=== PATIENT | male | born 1985 | race Hispanic/Latino ===

== ENCOUNTER 2018-05-08 13:35 | Emergency (ER) | payer SELFPAY ==
--- NOTE | 2018-05-08 13:50 | Emergency Department Report ---
Blank Doc - Documentation Documentation: This is a 32-year-old male that presents with acute on chronic lower back pain. Patient also stated has right buttock pain. Stated started at work while heavy lifting. Denies any urinary symptoms. Denies any trauma or injuries. This initial assessment diagnostic orders/clinical plan/treatment(s) is/are subject to change based on patient's health status, clinical progression and re- assessment by fellow clinical providers in the ED. Further treatment and workup at subsequent clinical providers discretion. Patient/guardians urged not to elope from ED s their condition may be serious if not clinically assessed and managed. Initial orders include: 1-Patient sent to [facility] for further evaluation and treatment
[2018-05-08 13:52] VITALS: BP 151/109
[2018-05-08] MEDS ORDERED: NORCO 10/325 PO ONE (18:21)
[2018-05-08] MEDS ORDERED: XYLOCAINE 1% 20 mL INFILTRATI NR (18:30)
--- NOTE | 2018-05-08 18:48 | Emergency Department Report ---
Abscess Boil HPI - HPI Chief Complaint: Back Pain/Injury Stated Complaint: BACK PAIN/BUTTOCKS PAIN Time Seen by Provider: 05/08/18 13:46 Duration: 2 Days Location: Sacral/Pilonidal Severity: Severe History: Yes Pain (10/10 to pull and a little area), No Fever, No Purulent Drainage, No Numbness, No Foreign Body, No Previous History, No Insect Bite HPI: This is a 32-year-old male he reports that he has painful boil on his buttocks. These have been pain at the site. Pain is 10/10 and sharp and throbbing. Worse with sitting down. He has not taken any medication [place] is no what it is. Patient is very tearful. Tetanus vaccine is up-to-date. Denies any fever or chills or nausea or vomiting. Denies any abdominal pain. Home Medications: Previous Rx's Medication Instructions Recorded Last Taken Type Acetaminophen/Codeine [Tylenol 1 tab PO Q6H PRN #14 tab 05/08/18 Unknown Rx /Codeine # 3 tab] Clindamycin [Clindamycin CAP] 300 mg PO Q8H 10 Days #30 cap 05/08/18 Unknown Rx Ibuprofen [Motrin] 800 mg PO Q8HR PRN #12 tablet 05/08/18 Unknown Rx Allergies/Adverse Reactions: Allergies Allergy/AdvReac Type Severity Reaction Status Date / Time No Known Allergies Allergy Unverified 05/08/18 13:52 ED Review of Systems ROS: Stated complaint: BACK PAIN/BUTTOCKS PAIN Other details as noted in HPI Constitutional: denies: chills, fever Respiratory: denies: cough, shortness of breath, wheezing Cardiovascular: denies: chest pain, palpitations, edema, syncope Gastrointestinal: denies: abdominal pain, nausea, vomiting, constipation Genitourinary: denies: dysuria, hematuria Musculoskeletal: back pain. denies: joint swelling, arthralgia, myalgia Skin: other (boil to buttocks) Neurological: denies: headache, numbness, paresthesias, abnormal gait, vertigo ED Past Medical Hx - Past Medical History Previous Medical History?: Yes Additional medical history: undescended testicle,shingles - Surgical History Past Surgical History?: Yes Additional Surgical History: testicular - Family History Family history: hypertension - Social History Smoking Status: Never Smoker Substance Use Type: Alcohol - Medications Home Medications: Home Medications Medication Instructions Recorded Confirmed Last Taken Type Acetaminophen/Codeine [Tylenol 1 tab PO Q6H PRN #14 tab 05/08/18 Unknown Rx /Codeine # 3 tab] Clindamycin [Clindamycin CAP] 300 mg PO Q8H 10 Days #30 cap 05/08/18 Unknown Rx Ibuprofen [Motrin] 800 mg PO Q8HR PRN #12 tablet 05/08/18 Unknown Rx ED Abscess Boil Physical Exam - Exam General: Vital signs noted. No distress. Alert and acting appropriately. Front/Back of Body, Lg (Color): 1 - Patient with 2 x 2 centimeter area erythema, indurated and fluctuant area to pilonidal. Tender to palpate without any drainage. Size: 3 cm Exam: Yes Tenderness (glenoid all area), Yes Fluctuance (peroneal area), Yes Surrounding Cellulites/Erythema (2 x 2 centimeter), Yes Normal Neurologic Exam (alert and oriented 3 with no focal deficits), Yes Normal Circulation (No cce. + 2 pulses in all extremities, no neurovascular compromise), No Lymphangitis, No Crepitation, No Heart Murmur (tachycardiac with a regular rhythm) Exam: Lungs: Clear to auscultate bilaterally, no rhonchi wheezes or rales. Psych: Normal mood and behavior. Abdomen: Soft, nontender to palpation in all quadrants. I & D Note - I & D Note I & D Note: Incision and drainage of abscess. 2 x 2 centimeter indurated fluctuant area to sacral/pilonidal area. Area cleansed with iodine, 13 mL of 1% lidocaine injected in the area. #11 blade used to make 0.25 cm opening to the Center and forceps used to break up possible pockets. Large amount of foul- smelling pus drained from site. Jane packed with 1 inch iodoform gauze. Patient received posterior X and first dose of clindamycin in ED. He tolerated procedure well and said that his pain is better. ED Course Vital Signs 05/08/18 05/08/18 13:50 18:28 Temperature 97.5 F L Pulse Rate 108 H Respiratory 18 16 Rate Blood Pressure 151/109 O2 Sat by Pulse 98 Oximetry Vital Signs 05/08/18 05/08/18 05/08/18 13:50 18:28 20:57 Temperature 97.5 F L Pulse Rate 108 H 88 Respiratory 18 16 Rate Blood Pressure 151/109 O2 Sat by Pulse 98 Oximetry - Reevaluation(s) Reevaluation #1: 05/08/18 18:56 Patient given hydrocodone 5/is referred to tablets. Emergency room preprocedure Reevaluation #2: 05/08/18 20:56 Please see procedure note for details of incision and drainage of abscess. Patient given clindamycin 600 mg by mouth and blistered 0.5 mL in the emergency room. Critical care attestation.: If time is entered above; I have spent that time in minutes in the direct care of this critically ill patient, excluding procedure time. ED Medical Decision Making - Medical Decision Making This a 32-year-old male here with pilonidal abscess to be drained. Please see procedure note for detail. Abscess drained and patient tolerated well. He received Blaine 5/325 2 tablets preprocedure and clindamycin 600 mg by mouth and Boostrix 0.5 mL injection past procedure. I instructed patient that he needs to return in 4 days for evaluation and removal of packing and and he voiced understanding. Vital signs stable afebrile and his pain is better ED Disposition Clinical Impression: Pilonidal abscess, Encounter for incision and drainage procedure Disposition: TO HOME OR SELFCARE Is pt being admited?: No Does the pt Need Aspirin: No Condition: Stable Instructions: Abscess Incision and Drainage (ED), Heat Pack Application (ED) Additional Instructions: Please return to the emergency room in 4 days to have packing removal and reevaluation of abscess site. Apply warm compresses to affected site 3-4 times a day to facilitate drainage. Please do not remove packing from site. Keep affected area clean and dry Take antibiotics as prescribed Take Tylenol 3 for severe pain and Motrin for mild to moderate pain If you symptoms worsens, return to the emergency room Referrals: return to ,emergency room [Other] - 05/12/18 DONOVAN PATEL MD [Primary Care Provider] - 05/10/18 Forms: Work/School Release Form(ED)
[2018-05-08] MEDS ORDERED: CLEOCIN PO ONE (20:51)
[2018-05-08] MEDS ORDERED: BOOSTRIX IM ONE (20:51)
== END 2018-05-08 21:16 | disposition home or self-care (01) ==
LOC: ED 13:35
DX: L05.01 Pilonidal cyst with abscess (principal)
CPT/HCPCS: 90471; 90715

== ENCOUNTER 2018-05-12 12:23 | Emergency (ER) | payer SELFPAY ==
[2018-05-12 12:29] VITALS: BP 147/84
--- NOTE | 2018-05-12 12:34 | Emergency Department Report ---
Blank Doc - Documentation Documentation: 32 y M presents with wound check and packing removal was seen 4 days ago for pilondial abscess no other cc [facility] for packing removal
--- NOTE | 2018-05-12 15:03 | Emergency Department Report ---
ED Recheck HPI - General Chief Complaint: Skin/Abscess/Foreign Body Stated Complaint: REMOVAL OF PACKAGING Time Seen by Provider: 05/12/18 12:29 Source: patient Mode of arrival: Ambulatory Limitations: No Limitations - History of Present Illness Initial Comments: This is a 32-year-old male presents for pack removal. Patient had an I&D on Tuesday and was told to follow up on today to have packing removed. Patient states there has been moderate drainage with multiple dressing changes but packing remained intact. He denies any new symptoms. Patient denies swelling, foul smelling drainage, numbness or tingling, erythema, or swelling. MD Complaint: wound re-check Onset/Timin -: days(s) Initial Visit For: abscess Returns Today for: wound recheck Symptoms Since Prior Visit: no new symptoms Context: planned re-check Associated Symptoms: none Treatments Prior to Arrival: dressings, Given Pain Meds on - Related Data Previous Rx's Medication Instructions Recorded Last Taken Type Acetaminophen/Codeine [Tylenol 1 tab PO Q6H PRN #14 tab 05/08/18 Unknown Rx /Codeine # 3 tab] Clindamycin [Clindamycin CAP] 300 mg PO Q8H 10 Days #30 cap 05/08/18 Unknown Rx Ibuprofen [Motrin] 800 mg PO Q8HR PRN #12 tablet 05/08/18 Unknown Rx Allergies Allergy/AdvReac Type Severity Reaction Status Date / Time No Known Allergies Allergy Unverified 05/08/18 13:52 ED Review of Systems ROS: Stated complaint: REMOVAL OF PACKAGING Other details as noted in HPI Constitutional: denies: chills, fever Respiratory: denies: cough, shortness of breath, wheezing Cardiovascular: denies: chest pain, palpitations Gastrointestinal: denies: abdominal pain, nausea, diarrhea Skin: lesions (packing from I&D and pilonidal region). denies: rash ED Past Medical Hx - Past Medical History Previous Medical History?: Yes Additional medical history: undescended testicle,shingles - Surgical History Past Surgical History?: Yes Additional Surgical History: testicular - Social History Smoking Status: Never Smoker Substance Use Type: None - Medications Home Medications: Home Medications Medication Instructions Recorded Confirmed Last Taken Type Acetaminophen/Codeine [Tylenol 1 tab PO Q6H PRN #14 tab 05/08/18 Unknown Rx /Codeine # 3 tab] Clindamycin [Clindamycin CAP] 300 mg PO Q8H 10 Days #30 cap 05/08/18 Unknown Rx Ibuprofen [Motrin] 800 mg PO Q8HR PRN #12 tablet 05/08/18 Unknown Rx ED Physical Exam - General Limitations: No Limitations General appearance: alert, in no apparent distress, obese - Respiratory Respiratory exam: Present: normal lung sounds bilaterally. Absent: respiratory distress - Cardiovascular Cardiovascular Exam: Present: regular rate, normal rhythm. Absent: systolic murmur, diastolic murmur, rubs, gallop - GI/Abdominal GI/Abdominal exam: Present: soft, normal bowel sounds - Neurological Exam Neurological exam: Present: alert, oriented X3 - Psychiatric Psychiatric exam: Present: normal affect, normal mood - Skin Skin exam: Present: warm, dry, normal color, other (packing to wound in pilonidal region, no surrounding cellulitis or swelling, nontender). Absent: intact, rash ED Course Vital Signs 05/12/18 12:27 Temperature 97.9 F Pulse Rate 95 H Respiratory 18 Rate Blood Pressure 147/84 O2 Sat by Pulse 98 Oximetry ED Recheck MDM - Differential Diagnosis Wound Recheck - Medical Decision Making This is a 32-year-old male who presents for packing removal from I&D 4 days ago. Patient is stable and examined by me. No acute signs of distress noted. There are no signs infection and patient denies new symptoms. Packing was removed with sterile forceps. Wound cleaned with normal saline and 4 x 4 dressing was surgical tape applied. Educated patient on wound care. Patient agrees to ED plan of care. Discharged home and follow up with PCP in 2-3 days. Critical care attestation.: If time is entered above; I have spent that time in minutes in the direct care of this critically ill patient, excluding procedure time. ED Disposition Clinical Impression: Abscess packing removal Disposition: DC- TO HOME OR SELFCARE Is pt being admited?: No Does the pt Need Aspirin: No Condition: Stable Instructions: Acute Wound Care (ED) Additional Instructions: Clean wound twice a day and apply sterile 4 x 4 gauze and tape until wound closes in 3-5 days. Follow-up with your primary care provider in 2-3 days for wound reevaluation. Return to the emergency room if swelling, foul drainage, redness around wound, and tenderness. Referrals: DONOVAN PATEL MD [Primary Care Provider] - 3-5 Days [facility] [Outside] - 3-5 Days [facility] [Outside] - 3-5 Days Forms: Work/School Release Form(ED) Time of Disposition: 15:06
== END 2018-05-12 15:27 | disposition home or self-care (01) ==
LOC: ED 12:23
DX: Z48.01 Encounter for change or removal of surgical wound dressing (principal); T14.8XXA Other injury of unspecified body region, initial encounter

== ENCOUNTER 2019-01-12 22:02 | Emergency (ER) | payer SELFPAY ==
--- NOTE | 2019-01-12 22:18 | Emergency Department Report ---
Stated Complaint: CHEST PAIN, NUMBNESS, CYST IN LOWER BACK - HPI History of Present Illness: 33yo WM states that he has a lower back cyst that is painful. He further states that he has CP that is subsiding now, after he took Acetaminophen-codeine prior to arrival. MSE screening note: Focused history and physical exam performed. Due to findings the following was ordered: ED Disposition for MSE Condition: Stable
[2019-01-12 23:19] LABS: Hematocrit 48.5 % (35.5-45.6); Hemoglobin 16.6 gm/dl (11.8-15.2); Mean Corpuscular HGB Conc 34 % (32-34); Mean Corpuscular Volume 87 fl (84-94); Red Blood Count 5.59 M/mm3 (3.65-5.03); Red Cell Distribution Width 12.7 % (13.2-15.2)
[2019-01-12 23:40] LABS: Alanine Aminotransferase 73 units/L (7-56); Albumin 4.3 g/dL (3.9-5); BUN/Creatinine Ratio 10; Blood Urea Nitrogen 6 mg/dL (9-20); Calcium 9.4 mg/dL (8.4-10.2); Hemolysis Index 17
--- NOTE | 2019-01-13 00:37 | XRay Report ---
CHEST 2 VIEWS INDICATION / CLINICAL INFORMATION: Chest pain. COMPARISON: None available. FINDINGS: SUPPORT DEVICES: None. HEART / MEDIASTINUM: No significant abnormality. LUNGS / PLEURA: No significant pulmonary or pleural abnormality. No pneumothorax. ADDITIONAL FINDINGS: No significant additional findings. IMPRESSION: 1. No acute findings. Signer Name: Marissa Boggs MD Signed: 01/13/2019 12:33 AM Workstation Name: [id number]
--- NOTE | 2019-01-13 00:59 | Emergency Department Report ---
- General Chief complaint: Chest Pain Stated complaint: CHEST PAIN, NUMBNESS, CYST IN LOWER BACK Time Seen by Provider: 01/12/19 23:47 Source: patient, family Mode of arrival: Ambulatory Limitations: No Limitations - History of Present Illness Initial comments: Patient initially arrived in emergency room complaining of right chest pain but reports that the pain is coming from his buttocks area where he has a cyst that he had at the same place last year and because of the pain and stress he thinks is as well as pains hurting. It is noted on the triage note that patient said t he right chest pain started after taking the last antibiotic for abscess in his mouth today. He reports pain buttocks area 3-10 worse with sitting. Denies any fever or chills. He also reports that his blood pressure is elevated because of the pain that he is having. Denies any nausea or vomiting. Denies any history of heart disease or chest pain. MD complaint: abscess/boil Onset/Timin -: days(s) Tetanus Up to Date: yes Location: buttocks Severity: mild Severity scale (0 -10): 3 Quality: sharp, constant, other (throbbing) Consistency: constant Improves with: rest Worsens with: palpation, other (stated in) Context: other (similar incident in the past) Associated symptoms: denies other symptoms Treatments Prior to Arrival: antibiotic - Related Data Previous Rx's Medication Instructions Recorded Last Taken Type Ibuprofen [Motrin] 800 mg PO Q8HR PRN #12 tablet 05/08/18 Unknown Rx Acetaminophen/Codeine [Tylenol 1 tab PO Q6H PRN #12 tab 01/13/19 Unknown Rx /Codeine # 3 tab] Clindamycin [Clindamycin CAP] 300 mg PO Q8H 10 Days #30 cap 01/13/19 Unknown Rx Allergies Allergy/AdvReac Type Severity Reaction Status Date / Time No Known Allergies Allergy Unverified 05/08/18 13:52 Abscess Boil HPI - HPI Chief Complaint: Chest Pain Stated Complaint: CHEST PAIN, NUMBNESS, CYST IN LOWER BACK Time Seen by Provider: 01/12/19 23:47 Home Medications: Previous Rx's Medication Instructions Recorded Last Taken Type Ibuprofen [Motrin] 800 mg PO Q8HR PRN #12 tablet 05/08/18 Unknown Rx Acetaminophen/Codeine [Tylenol 1 tab PO Q6H PRN #12 tab 01/13/19 Unknown Rx /Codeine # 3 tab] Clindamycin [Clindamycin CAP] 300 mg PO Q8H 10 Days #30 cap 01/13/19 Unknown Rx Allergies/Adverse Reactions: Allergies Allergy/AdvReac Type Severity Reaction Status Date / Time No Known Allergies Allergy Unverified 05/08/18 13:52 ED Review of Systems ROS: Stated complaint: CHEST PAIN, NUMBNESS, CYST IN LOWER BACK Other details as noted in HPI Constitutional: denies: chills, fever ENT: denies: throat pain Respiratory: denies: cough, shortness of breath, wheezing Cardiovascular: denies: chest pain, palpitations, dyspnea on exertion, edema, syncope Gastrointestinal: denies: abdominal pain, nausea, vomiting, diarrhea, constipation Genitourinary: denies: dysuria, hematuria, testicular pain, testicular mass Musculoskeletal: back pain. denies: joint swelling, arthralgia, myalgia Skin: other (abscess to buttocks) Neurological: denies: headache ED Past Medical Hx - Past Medical History Previous Medical History?: Yes Additional medical history: undescended testicle,shingles. pilonidal cyst - Surgical History Past Surgical History?: Yes Additional Surgical History: testicular - Family History Family history: hypertension - Social History Smoking Status: Never Smoker Substance Use Type: None - Medications Home Medications: Home Medications Medication Instructions Recorded Confirmed Last Taken Type Ibuprofen [Motrin] 800 mg PO Q8HR PRN #12 tablet 05/08/18 Unknown Rx Acetaminophen/Codeine [Tylenol 1 tab PO Q6H PRN #12 tab 01/13/19 Unknown Rx /Codeine # 3 tab] Clindamycin [Clindamycin CAP] 300 mg PO Q8H 10 Days #30 cap 01/13/19 Unknown Rx ED Physical Exam - General Limitations: No Limitations General appearance: alert, in no apparent distress - Head Head exam: Present: atraumatic, normocephalic - ENT ENT exam: Present: normal exam, normal orophraynx - Neck Neck exam: Present: normal inspection, full ROM. Absent: tenderness - Respiratory Respiratory exam: Present: normal lung sounds bilaterally. Absent: respiratory distress, chest wall tenderness - Cardiovascular Cardiovascular Exam: Present: normal rhythm, tachycardia, normal heart sounds - GI/Abdominal GI/Abdominal exam: Present: soft, normal bowel sounds. Absent: distended, tenderness - Extremities Exam Extremities exam: Present: normal inspection, full ROM. Absent: pedal edema - Back Exam Back exam: Present: normal inspection, full ROM, tenderness (tender to palpate to coccyx area), other (ambulates without any difficulties). Absent: muscle spasm, paraspinal tenderness, vertebral tenderness - Neurological Exam Neurological exam: Present: alert, oriented X3, normal gait - Psychiatric Psychiatric exam: Present: normal affect, normal mood - Skin Skin exam: Present: other (patient with red, indurated, fluctuant area, 2 x 2 centimeter to coccyx area. Tender to palpate. No drainage noted) ED Course Vital Signs 01/12/19 01/13/19 22:07 01:30 Temperature 98.9 F Pulse Rate 105 H Respiratory 22 16 Rate Blood Pressure 173/107 O2 Sat by Pulse 99 Oximetry Vital Signs 01/12/19 01/13/19 01/13/19 22:07 01:30 02:39 Temperature 98.9 F Pulse Rate 105 H 77 Respiratory 22 16 18 Rate Blood Pressure 173/107 Blood Pressure 136/90 [Left] O2 Sat by Pulse 99 100 Oximetry - Reevaluation(s) Reevaluation #1: 01/13/19 02:10 She received Valium 5 mg by mouth and Percocet 5/325 2 tablets by mouth prior to procedure for incision and drainage. He was very anxious prior to procedure because he said he was lot of pain. Patient was not having any chest pain will my assessment he was having pain to his coccyx and sacral area Reevaluation #2: 01/13/19 02:31 Pilonidal cyst strain and large amount of serous and drainage expressed from site. Area packed with iodoform packing and sterile dressing placed over site. Please see procedure note for details. Patient tolerated procedure well and in no acute distress at present. He received clindamycin 600 mg by mouth in [facility] room - I & D Sacrum Type of Procedure: Complex Site: sacrum/coccyx area Blade Size: 11 (after cleaning ear with iodine and saline, 10 mL of Marcaine injected at site and #11 blade used to make a small incision) I & D Procedure: betadine prep, sterile drapes applied, sterile dressing applied, gauze wick placed Progress: Patient tolerated procedure well with no adverse reaction. ED Medical Decision Making - Lab Data Result diagrams: 01/12/19 22:50 01/12/19 22:50 Lab Results 01/12/19 01/12/19 01/13/19 Range/Units 22:50 22:50 00:06 WBC 13.1 H (4.5-11.0) K/mm3 RBC 5.59 H (3.65-5.03) M/mm3 Hgb 16.6 H (11.8-15.2) gm/dl Hct 48.5 H (35.5-45.6) % MCV 87 (84-94) fl MCH 30 (28-32) pg MCHC 34 (32-34) % RDW 12.7 L (13.2-15.2) % Plt Count 272 (140-440) K/mm3 Add Manual Diff Complete Total Counted 100 Seg Neuts % (Manual) 59.0 (40.0-70.0) % Band Neutrophils % 0 % Lymphocytes % (Manual) 33.0 (13.4-35.0) % Reactive Lymphs % (Man) 0 % Monocytes % (Manual) 2.0 (0.0-7.3) % Eosinophils % (Manual) 3.0 (0.0-4.3) % Basophils % (Manual) 2.0 H (0.0-1.8) % Metamyelocytes % 1.0 % Myelocytes % 0 % Promyelocytes % 0 % Blast Cells % 0 % Nucleated RBC % Not Reportable Seg Neutrophils # Man 7.7 (1.8-7.7) K/mm3 Band Neutrophils # 0.0 K/mm3 Lymphocytes # (Manual) 4.3 (1.2-5.4) K/mm3 Abs React Lymphs (Man) 0.0 K/mm3 Monocytes # (Manual) 0.3 (0.0-0.8) K/mm3 Eosinophils # (Manual) 0.4 (0.0-0.4) K/mm3 Basophils # (Manual) 0.3 H (0.0-0.1) K/mm3 Metamyelocytes # 0.1 K/mm3 Myelocytes # 0.0 K/mm3 Promyelocytes # 0.0 K/mm3 Blast Cells # 0.0 K/mm3 WBC Morphology Not Reportable Hypersegmented Neuts Not Reportable Hyposegmented Neuts Not Reportable Hypogranular Neuts Not Reportable Smudge Cells Not Reportable Toxic Granulation Not Reportable Toxic Vacuolation Not Reportable Dohle Bodies Not Reportable Pelger-Huet Anomaly Not Reportable Steve Rods Not Reportable Platelet Estimate Consistent w auto Clumped Platelets Not Reportable Plt Clumps, EDTA Not Reportable Large Platelets Not Reportable Giant Platelets Not Reportable Platelet Satelliting Not Reportable Plt Morphology Comment Not Reportable RBC Morphology Not Reportable Dimorphic RBCs Not Reportable Polychromasia Not Reportable Hypochromasia Not Reportable Poikilocytosis Not Reportable Anisocytosis Not Reportable Microcytosis Not Reportable Macrocytosis Few Spherocytes Not Reportable Pappenheimer Bodies Not Reportable Sickle Cells Not Reportable Target Cells Not Reportable Tear Drop Cells Not Reportable Ovalocytes Not Reportable Helmet Cells Not Reportable [place]ruger-[place] Bodies Not Reportable [place] Rings Not Reportable Yessi Cells Not Reportable Bite Cells Not Reportable Crenated Cell Not Reportable Elliptocytes Not Reportable Acanthocytes (Spur) Not Reportable Rouleaux Not Reportable Hemoglobin C Crystals Not Reportable Schistocytes Not Reportable Malaria parasites Not Reportable Brodie Bodies Not Reportable Hem Pathologist Commnt No Sodium 140 (137-145) mmol/L Potassium 3.7 (3.6-5.0) mmol/L Chloride 102.1 (98-107) mmol/L Carbon Dioxide 24 (22-30) mmol/L Anion Gap 18 mmol/L BUN 6 L (9-20) mg/dL Creatinine 0.6 L (0.8-1.5) mg/dL Estimated GFR > 60 ml/min BUN/Creatinine Ratio 10 % Glucose 82 (75-100) mg/dL Calcium 9.4 (8.4-10.2) mg/dL Total Bilirubin 0.30 (0.1-1.2) mg/dL AST 37 (5-40) units/L ALT 73 H (7-56) units/L Alkaline Phosphatase 85 (35-129) units/L Troponin T < 0.010 (0.00-0.029) ng/mL Total Protein 7.7 (6.3-8.2) g/dL Albumin 4.3 (3.9-5) g/dL Albumin/Globulin Ratio 1.3 % - EKG Data -: EKG Interpreted by Me (attending physician) EKG shows normal: sinus rhythm Rate: tachycardia (102) - EKG Data Interpretation: no acute changes - Medical Decision Making This is a 33-year-old male with recurrent pilonidal cyst. Incision and drainage procedure done please refer to procedure note for details. Patient was given Percocet and Valium for anxiety and pain preprocedure and he tolerated procedure well. Patient to return in 4 days to have packing removed and he voiced understanding. He also understands that he needs to apply warm compresses to affected area as he did before 3-4 times a day to facilitate drainage and that he needs to leave packing in and return to the emergency room for removal. Patient vital signs stable, he is afebrile and pain is managed. Lab work with CBC with slight elevation in white count otherwise stable and CMP stable. She is discharged home with his family with prescription for Tylenol 3 and c lindamycin. Critical care attestation.: If time is entered above; I have spent that time in minutes in the direct care of this critically ill patient, excluding procedure time. ED Disposition Clinical Impression: Encounter for drainage of abscess, Pilonidal abscess, Anxiety about health Disposition: DC-01 TO HOME OR SELFCARE Is pt being admited?: No Does the pt Need Aspirin: No Condition: Stable Instructions: Abscess Incision and Drainage (ED) Additional Instructions: Please apply warm compresses to affected area 3-4 times a day as discussed. If your Condition worsens he developed fever, increased pain and redness, please return to emergency room otherwise return and 4 days to have packing removed. Keep affected area clean and dry Take clindamycin antibiotic and Tylenol 3 which is a pain medication but please do not drive or operate heavy machinery while taking this medication as it causes drowsiness OP primary care physician in 3-5 days. Prescriptions: Clindamycin [Clindamycin CAP] 300 mg PO Q8H 10 Days #30 cap Acetaminophen/Codeine [Tylenol /Codeine # 3 tab] 1 tab PO Q6H PRN #12 tab PRN Reason: moderate to severe pain Referrals: DONOVAN PATEL MD [Primary Care Provider] - 3-5 Days return to, emergency room and 4 days to have packing removed [Other] - 01/17/19 Forms: Accompanied Note, Work/School Release Form(ED)
[2019-01-13] MEDS ORDERED: CLINDAMYCIN 300 MG CAP PO ONE (01:03)
[2019-01-13] MEDS ORDERED: diazePAM 5 MG TAB PO ONE (01:03)
[2019-01-13] MEDS ORDERED: SODIUM CHLORIDE 0.9% IRR 500 ML BOTTLE IR ONE (01:03)
[2019-01-13] MEDS ORDERED: oxyCODONE /ACETAMINOPHEN 5-325MG TAB PO ONE (01:03)
[2019-01-13] MEDS ORDERED: BUPIVACAINE/PF (0.5%) 5 MG/1 ML 10 ML VIAL INFILTRATI NR (02:00)
[2019-01-13 02:28] LABS: Total Cells Counted 100
[2019-01-13 02:30] LABS: Macrocytosis Few; Platelet Estimate Consistent w Auto
[2019-01-13 02:31] LABS: Mean Platelet Volume 8.4 fl (6-12); Platelet Count 272 K/mm3 (140-440)
[2019-01-13 02:40] VITALS: BP 136/90
== END 2019-01-13 03:08 | disposition home or self-care (01) ==
LOC: ED 22:02
DX: L05.01 Pilonidal cyst with abscess (principal); F41.8 Other specified anxiety disorders; Z98.890 Other specified postprocedural states; Z79.899 Other long term (current) drug therapy
CPT/HCPCS: 36415; 71046; 80053; 84484; 85007; 85025; 93005; 93010

== ENCOUNTER 2019-01-17 16:59 | Emergency (ER) | payer SELFPAY ==
--- NOTE | 2019-01-17 17:55 | Event Note ---
ED Screening Note Date of service: 01/17/19 Time: 17:50 ED Screening Note: This is a 33 y.o. M. that presents to the ER for packing removal of pilonidal cyst. PMH of HTN and anxiety This initial assessment/diagnostic orders/clinical plan/treatment(s) is/are subject to change based on patients health status, clinical progression and re- assessment by fellow clinical providers in the ED. Further treatment and workup at subsequent clinical providers discretion. Patient/guardian urged not to elope from the ED as their condition may be serious if not clinically assessed and managed. Initial orders include:
--- NOTE | 2019-01-17 20:19 | Emergency Department Report ---
ED General Adult HPI - General Chief complaint: Skin/Abscess/Foreign Body Stated complaint: PACKING REMOVAL Time Seen by Provider: 01/17/19 17:50 Source: patient Mode of arrival: Ambulatory Limitations: No Limitations - History of Present Illness Initial comments: 33 y o male presents to ED for wound packing removal that was placed 3 days ago FROM A PILONIDAL cyst drainage. Patient states she isn't taking his medication as prescribed and taking his antibiotics. Patient also states that he has a history of hypertension but has not been taking medication and is requesting a refill. Patient states he has appointment with the primary care doctor in March when his insurance kicks in. He denies fevers/chills/nausea vomiting or any other problems. - Related Data Previous Rx's Medication Instructions Recorded Last Taken Type Ibuprofen [Motrin] 800 mg PO Q8HR PRN #12 tablet 05/08/18 Unknown Rx Acetaminophen/Codeine [Tylenol 1 tab PO Q6H PRN #12 tab 01/13/19 Unknown Rx /Codeine # 3 tab] Clindamycin [Clindamycin CAP] 300 mg PO Q8H 10 Days #30 cap 01/13/19 Unknown Rx amLODIPine 10 mg PO DAILY 1 Days #60 tab 01/17/19 Unknown Rx Allergies Allergy/AdvReac Type Severity Reaction Status Date / Time No Known Allergies Allergy Unverified 05/08/18 13:52 ED Review of Systems ROS: Stated complaint: PACKING REMOVAL Other details as noted in HPI Comment: All other systems reviewed and negative ED Past Medical Hx - Past Medical History Previous Medical History?: No Additional medical history: undescended testicle,shingles. pilonidal cyst - Surgical History Past Surgical History?: No Additional Surgical History: testicular - Social History Smoking Status: Never Smoker Substance Use Type: None - Medications Home Medications: Home Medications Medication Instructions Recorded Confirmed Last Taken Type Ibuprofen [Motrin] 800 mg PO Q8HR PRN #12 tablet 05/08/18 Unknown Rx Acetaminophen/Codeine [Tylenol 1 tab PO Q6H PRN #12 tab 01/13/19 Unknown Rx /Codeine # 3 tab] Clindamycin [Clindamycin CAP] 300 mg PO Q8H 10 Days #30 cap 01/13/19 Unknown Rx amLODIPine 10 mg PO DAILY 1 Days #60 tab 01/17/19 Unknown Rx ED Physical Exam - General Limitations: No Limitations - GI/Abdominal GI/Abdominal exam: Present: soft. Absent: distended, tenderness, guarding, rebound - Rectal Rectal exam: Present: other (packing removed without any problems. No signs of infection, no excess drainage.) - exam: Present: normal inspection External exam: Present: normal external exam ED Course Vital Signs 01/17/19 01/17/19 17:32 17:55 Temperature 98.2 F Pulse Rate 106 H Respiratory 20 Rate Blood Pressure 161/114 Blood Pressure 174/115 [Left] O2 Sat by Pulse 98 Oximetry ED Medical Decision Making - Medical Decision Making 33-year-old male presents with pilonidal wound packing removal assessment. Packing was removed without any problems. [place] patient's hypertension with a prescription of him with the pain was patient was started taking daily. Patient is in no acute distress in the setting instructions as Patient received prescription for blood pressure medication amlodipine. Patient states she will follow up with his primary care physician for management of his blood pressure. Patient was asymptomatic in the ED. Discussed if any worsening symptoms to return to ED. Critical care attestation.: If time is entered above; I have spent that time in minutes in the direct care of this critically ill patient, excluding procedure time. ED Disposition Clinical Impression: Wound check, abscess, Uncontrolled hypertension Disposition: DC-01 TO HOME OR SELFCARE Is pt being admited?: No Does the pt Need Aspirin: No Condition: Stable Instructions: Acute Wound Care (ED), Hypertension (ED) Additional Instructions: Make sure to follow up with the primary care physician as discussed. Take all your medications as you've been prescribed. If you have any worsening symptoms or develop new symptoms please return to ED immediately. Prescriptions: amLODIPine 10 mg PO DAILY 1 Days #60 tab Referrals: PRIMARY CARE, [Primary Care Provider] - 3-5 Days [facility] [Outside] - 3-5 Days [facility] [Outside] - 3-5 Days Forms: Accompanied Note, Work/School Release Form(ED) Time of Disposition: 20:41
[2019-01-17 20:51] VITALS: BP 161/114
== END 2019-01-17 20:50 | disposition home or self-care (01) ==
LOC: ED 16:59
DX: L05.01 Pilonidal cyst with abscess (principal); I10 Essential (primary) hypertension; F41.9 Anxiety disorder, unspecified; Z79.899 Other long term (current) drug therapy